=== PATIENT | female | born 1955 | race Caucasian/White ===

== ENCOUNTER 2020-03-26 11:26 | Outpatient (CLI) | payer OTHER, SELFPAY ==
--- NOTE | ~2020-03-26 | XR_ITS ---
EXAMINATION: XR abdomen/kub 1V INDICATION: Kidney stones TECHNIQUE: Supine views of the abdomen were obtained on 2 radiographs. COMPARISON: 08/31/2019 FINDINGS: There are stable nonobstructing stone or stones in the right kidney lower pole. No stones a re identified in the left kidney, along the expected courses of the ureters, or within the urinary bl adder. The bowel gas pattern is normal. A moderate volume of colonic stool is present. IMPRESSION: 1. Stable right nephrolithiasis. Reviewed, dictated and finalized at location A.
== END 2020-03-26 11:27 | disposition home or self-care (01) ==
PROVIDERS: PCP Family Medicine; Visit Provider Urology
DX: N20.0 Calculus of kidney (principal)
CPT/HCPCS: 74018

== ENCOUNTER 2022-01-19 20:00 | Inpatient (IN) | payer MEDICARE, SELFPAY ==
[2022-01-19] VITALS (25 sets, daily range): BP systolic 75–152; BP diastolic 39–83; PULSE 93–125; RESP 14–36; TEMP 37.7–38.8; O2SAT 92–99
--- NOTE | ~2022-01-19 | CT_ITS ---
EXAMINATION: CT lumbar spine wo con DATE: 01/20/2022 11:14 INDICATION: Low back pain TECHNIQUE: Computed tomography (CT) of the lumbar spine was performed without intravenous contrast. A utomated exposure control and iterative reconstruction technique were employed. The dose-length produ ct was 957.18 mGy-cm. COMPARISON: None FINDINGS: Transitional partially lumbarized S1 segment with 5 more cephalad paired rib-bearing lumbar segments. 1-2 mm anterolisthesis L4 on L5. Vertebral body heights are normal. No fracture. Minimal disc height loss at L4-L5. 2.1 cm cyst at the upper pole of the right kidney. Mild hydronephrosis at the visuali zed right kidney with transition point at the ureteropelvic junction without evident obstructing ston e or mass. Paravertebral soft tissues are unremarkable. The following disc levels are specifically di scussed: T12-L1: The disc does not extend beyond the endplate margin. There is minimal bilateral facet joint o steoarthritis. There is no neural foraminal stenosis. There is no central canal stenosis. L1-L2: The disc does not extend beyond the endplate margin. There is mild right and minimal left face t joint osteoarthritis. There is no neural foraminal stenosis. There is no central canal stenosis. L2-L3: Disc is mildly bulging. There is minimal bilateral facet joint osteoarthritis. There is mild b ilateral neural foraminal stenosis. There is minimal central canal stenosis. L3-L4: Disc is bulging. There is mild bilateral facet joint osteoarthritis. There is mild bilateral n eural foraminal stenosis. There is mild central canal stenosis. L4-L5: Disc is bulging. There is moderate bilateral facet joint osteoarthritis. There is mild bilater al neural foraminal stenosis. There is mild central canal stenosis. L5-S1: Disc is mildly bulging. There is mild left and severe right facet joint osteoarthritis. There is mild to moderate bilateral neural foraminal stenosis. There is mild central canal stenosis. IMPRESSION: 1. Mild lumbar spondylosis. 2. Mild right hydronephrosis without evident obstructing stone or mass at the transition point at the ureteropelvic junction. Reviewed, dictated and finalized at location A. IMPRESSION: 1. Mild lumbar spondylosis. 2. Mild right hydronephrosis without evident obstructing stone or mass at the t ransition point at the ureteropelvic junction.
--- NOTE | ~2022-01-19 | XR_ITS ---
EXAMINATION: XR chest 2V DATE: 01/19/2022 22:27 INDICATION: Fever TECHNIQUE: AP and lateral views of the chest are obtained. COMPARISON: 12/03/2014 FINDINGS: There is mild atelectasis of the lung bases. Patchy opacity is present in the left midlung zone. There is no pleural effusion or pneumothorax. The cardiomediastinal silhouette is normal. There is mild thoracic spondylosis. IMPRESSION: 1. Patchy opacity in the left midlung zone, consistent with atelectasis versus pneumonia. Reviewed, dictated and finalized at location F.
--- NOTE | ~2022-01-19 | XR_ITS ---
EXAMINATION: XR chest 1V portable DATE: 01/20/2022 09:35 INDICATION: Increased shortness of breath TECHNIQUE: frontal view of the chest was obtained. COMPARISON: Chest radiograph dated 01/20/2022 FINDINGS: Right upper extremity peripherally inserted central venous catheter (PICC) tip at the caudal superio r vena cava. Increasing diffuse interstitial pattern throughout both lungs. More patchy airspace opac ities in the left lower lung zone. No pleural effusion or pneumothorax. The cardiomediastinal silhoue tte is normal. IMPRESSION: 1. Worsening diffuse bilateral lung disease most likely pulmonary edema although differential include s pneumonia. Reviewed, dictated and finalized at location A. IMPRESSION: 1. Worsening diffuse bilateral lung disease most likely pulmonary edema althoug h differential includes pneumonia.
--- NOTE | ~2022-01-19 | CT_ITS ---
EXAMINATION: CT abdomen pelvis w con INDICATION: Upper abdominal pain TECHNIQUE: Computed tomographic images of the abdomen and pelvis were obtained after the administrati on of 100 cc of Omnipaque 350 intravenous contrast. The dose-length product (DLP) was 860.50 mGy-cm. Automated exposure control and iterative reconstruction technique were employed. COMPARISON: 08/29/2019 FINDINGS: Minimal dependent atelectasis is present in the lung bases. The heart size is normal. The l iver, pancreas, gallbladder, and adrenal glands are normal. Multiple left upper quadrant splenules ar e noted. There is a 9 mm nonobstructing stone of the right kidney lower pole. Cysts of the kidneys me asure up to 3.2 cm on the left. There is calcified atherosclerosis of the aorta and many of the other arteries. No pathologically enlarged abdominal or pelvic lymph nodes are identified. There is no sara e intraperitoneal gas or evidence of bowel obstruction. There is mild lumbar spondylosis. IMPRESSION: 1. No CT correlate for the patient's symptoms. Reviewed, dictated and finalized at location F.
--- NOTE | ~2022-01-19 | XR_ITS ---
EXAMINATION: XR chest 1V portable DATE: 01/21/2022 08:13 INDICATION: Shortness of breath. Pulmonary edema. TECHNIQUE: A single frontal view of the chest was obtained. COMPARISON: Chest single view 01/20/2022, chest CT 01/19/2022 FINDINGS: There is mild atelectasis in the mid and lower lung zones. No pleural effusion or pneumotho rax. The heart size is normal. A right internal jugular central venous catheter is seen with tip at t he superior cavoatrial junction. IMPRESSION: 1. Mild atelectasis in the mid and lower lung zones. Reviewed, dictated and finalized at location B.
--- NOTE | ~2022-01-19 | XR_ITS ---
EXAMINATION: XR chest port-a-cath/central EXAM DATE: 01/20/2022 01:09 INDICATION: Central line placement TECHNIQUE: Portable AP frontal chest x-ray was obtained. Comparison is made to prior examination from 01/19/2022, 12/03/2014. FINDINGS: There is a new right-sided IJ venous line, tip at the cavoatrial junction. Scattered regions of linear subsegmental scarring or atelectasis. No confluent consolidation. There a re no sizable pleural effusions. There is no pneumothorax suspected. The cardiomediastinal silhou ette is prominent but magnified on this AP technique. The bones and soft tissues are unremarkable. There is no significant interval change compared to prior exam. IMPRESSION: 1. Right IJ line in position, no postprocedure pneumothorax. 2. Scattered regions of subsegmental atelectasis or scarring. Reviewed, dictated and finalized at location A.
--- NOTE | ~2022-01-19 | US_ITS ---
EXAMINATION: US abdomen limited DATE: 01/20/2022 08:55 INDICATION: Septic shock. TECHNIQUE: Multiple grayscale and Doppler ultrasound images of the abdomen were obtained. COMPARISON: CT abdomen and pelvis 01/19/2022 FINDINGS: The visualized portions of the head and body of the pancreas are normal. The liver is alok l without focal lesion. There is normal flow in main portal vein. The gallbladder is normal in size a nd contains sludge. No gallstones. Gallbladder wall thickening is noted. There was no sonographic Mur phy sign. The common duct is normal and measures 6 mm. IMPRESSION: 1. Gallbladder sludge. Gallbladder wall thickening may be seen with interstitial edema, chronic iris cystitis, or chronic liver disease. Reviewed, dictated and finalized at location B. IMPRESSION: 1. Gallbladder sludge. Gallbladder wall thickening may be seen with interstitia l edema, chronic cholecystitis, or chronic liver disease.
--- NOTE | ~2022-01-19 | CT_ITS ---
EXAMINATION: CTA chest PE protocol EXAM DATE: 01/19/2022 23:59 INDICATION: left lung opacity vs PE, sepsis . TECHNIQUE: Spiral CTA of the chest (pulmonary arteries) was performed with 100 cc Omnipaque 350 intr avenous contrast injection. Images were acquired during the pulmonary arterial phase. Coronal maxi mum intensity projection 3D-reconstructions were created by the technologist on dedicated workstation . Axial, coronal and sagittal reformatted images were reviewed. The dose-length product (DLP) for t his examination was 409.58 mGy-cm. The exposure was tailored according to patient size (auto mA exp osure control), and iterative reconstruction (ASIR) was used as additional dose reduction technique. There is no prior study for comparison. FINDINGS: There are no pulmonary emboli in the 1st through 3rd order (central and interlobar) pulmon mateo arteries. Some loss of attenuation in the basilar segmental pulmonary from respiratory motion, t hese regions not confidently evaluated. No Intraluminal filling defects identified. No thoracic aor tic dissection. Scattered regions of linear subsegmental atelectasis. There are no pleural or peric ardial effusions. Tracheobronchial tree is patent. There is no mediastinal, hilar or axillary lym phadenopathy. There is no pneumothorax. Borderline heart size. There is mild coronary arterial c alcification, arterial sclerosis. Left upper quadrant splenosis. Hepatic steatosis. There is thorac ic spondylosis without osteoblastic or osteolytic lesions identified. IMPRESSION: 1. Limited basilar segmental evaluation, but no pulmonary emboli are suspected. 2. Scattered subsegmental atelectasis. 3. Hepatic steatosis. Reviewed, dictated and finalized at location A. IMPRESSION: 1. Limited basilar segmental evaluation, but no pulmonary emboli are suspected . 2. Scattered subsegmental atelectasis. 3. Hepatic steatosis.
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
--- NOTE | 2022-01-19 20:32 | ECG_ITS ---
Measurements Intervals Plaza Rate: 105 P: 111 SC: 192 QRS: 214 QRSD: 86 T: 117 QT: 315 QTc: 416 Interpretive Statements SINUS TACHYCARDIA BASELINE ARTIFACT NONSPECIFIC ST ABNORMALITY ARM LEADS REVERSED [INVERTED P AND QRS IN I] ABNORMAL ECG NO PREVIOUS ECG AVAILABLE FOR COMPARISON Electronically Signed On 01-20-2022 16:44:19 CDT by Jon De La Paz M.D.
[2022-01-19 20:34] LABS: Basophils Percent Auto 0.4 % (0.2-1.2); Eosinophils Percent Auto 0.1 % (0-4.4); Hematocrit 39.2 % (37.0-47.0); Hemoglobin 12.8 g/dL (12.0-15.0); Immature Granulocyte Absolute 0.05 K/mm3 (0.00-0.031); Immature Granulocyte Percent A 0.4 % (0-0.5); Lymphocytes Absolute Auto 1.43 K/mm3 (0.9-3.2); Lymphocytes Percent Auto 12.8 % (18.3-44.2); Mean Corpuscular HGB Conc 32.7 g/dl (32-36); Mean Corpuscular Hemoglobin 27.8 pg (26-34); Mean Corpuscular Volume 85.2 fl (80-100); Mean Platelet Volume 11.1 fl (7.4-10.4); Monocytes Absolute Auto 0.1 K/mm3 (0.1-0.6); Monocytes Percent Auto 0.4 % (2.6-8.5); Neutrophils Absolute Auto 9.6 K/mm3 (1.3-6.7); Neutrophils Percent Auto 85.9 % (45.5-73.1); Platelet Count Result 204 k/mm3 (150-375); White Blood Count 11.2 K/mm3 (4.5-10.0)
[2022-01-19 20:50] LABS: Alanine Aminotransferase 27 U/L (4-35); Albumin Level 4.4 g/dL (3.5-5.1); Alkaline Phosphatase 64 U/L (38-126); Anion Gap 9 mmol/L (8-16); Aspartate Amino Transferase 43 U/L (14-36); Bilirubin,Total 0.9 mg/dL (0.2-1.3); Blood Urea Nitrogen 14 mg/dL (7-17); Calcium 8.9 mg/dL (8.4-10.2); Carbon Dioxide 26 mmol/L (22-30); Chloride 101 mmol/L (98-107); Estimated CRCL calculation 60 ml/min; Estimated Glomerular Filt Rate > 60; Glucose 108 mg/dL (65-110); Lipase 54 U/L (23-300); Potassium 2.6 mmol/L (3.4-5.0); Sodium 136 mmol/L (137-145)
[2022-01-19 21:01] LABS: CRP < 0.5 mg/dL (<1.0)
[2022-01-19 21:20] LABS: Troponin I 0.109 ng/mL (0.000-0.034)
[2022-01-19] MEDS: SODIUM CHLORIDE 0.9% IV 2,700 ML/1,000 ML BAG 999 ML IV CONT ×3 (21:29→21:36)
[2022-01-19] MEDS: ONDANSETRON INJ 4 MG/2 ML VIAL IV PUSH (21:35)
[2022-01-19] MEDS: MORPHINE SULFATE (*CRX) 4 MG/ML INJ IV PUSH (21:35)
[2022-01-19] MEDS: POTASSIUM CHLORIDE INJ 40 MEQ in SODIUM CHLORIDE 0.9% IV 500 ML 130 MEQ IVPB (21:35)
[2022-01-19 22:08] LABS: INR 1.1; Lactic Acid Reflex 3.2 mmol/L (0.7-2.1); Prothrombin Time 14.1 Seconds (11.1-14.7)
[2022-01-19 22:09] LABS: Partial Thromboplastin Time 23.8 SECONDS (22.3-36.8)
[2022-01-19 23:02] LABS: Appearance Urine Clear (Clear); Bilirubin Urine Negative (Negative); Blood Urine Trace-lysed (Negative); Color Urine Yellow (Yellow); Glucose Urine UA Negative (Negative); Ketones Urine Negative (Negative); Leukocyte Esterase Ur Negative LEU/UL (Negative); Nitrate Urine Negative (Negative); Protein Urine Negative (Negative); Specific Grav Ur <= 1.005 (1.001-1.035); Urobilinogen Urine 0.2 mg/dL (<2.0)
[2022-01-19 23:04] LABS: Bacteria Urine Trace /hpf; RBC Urine 0-2 /hpf (0-2); Squamous Epithelial Cell Urine Rare /hpf (Few); WBC Urine 0-3 /hpf
[2022-01-19 23:05] LABS: Add Urine Microscopic? YES
[2022-01-19] MEDS: SODIUM CHLORIDE 0.9% IV 1,000 ML 999 ML IV CONT (23:20)
[2022-01-19 23:29] LABS: NT Pro B Type Natriuretic Pept 374 pg/mL (5-100)
[2022-01-19 23:40] LABS: Influenza A QL RT-PCR Negative (Negative); Influenza B QL RT-PCR Negative (Negative); SARS-CoV-2 RNA PCR Negative
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
[2022-01-20] VITALS (38 sets, daily range): BP systolic 82–133; BP diastolic 41–80; PULSE 68–114; RESP 14–26; TEMP 36.7–38.8; O2SAT 88–99; BMI 35.9
--- NOTE | 2022-01-20 | ECHO_ITS ---
Patient Info Name: Pamela Sam Age: 66 years : 1955 Gender: Female Ht: 64 in Wt: 200 lbs BSA: 2.06 m2 HR: 99 bpm BP: 155 / 69 mmHg Heart Rhythm: Sinus Rhythm Exam Date: 01/20/2022 7:54 AM Exam Location: [facility] Patient Status: Inpatient Admit Date: 01/20/2022 Staff Ordering Physician: Ayaka Espinoza MD Toll Transmission Worker: Benedicto Maynard RDCS, RT Attending Provider: Ivonne Newton DO Referring Physician: Alexis TURNER; Exam Type: CA echo doppler color flow Study Info Indications I50.9 - Heart failure, unspecified Complete two-dimensional, color flow and Doppler transthoracic echocardiogram is performed. Strain analysis performed. Summary 1. Complete two-dimensional, color flow and Doppler transthoracic echocardiogram is performed. 2. Left ventricular chamber dimension is normal. 3. Left ventricular systolic function is normal, estimated at 55-60%. 4. There is mildly increased left ventricular wall thickness. 5. The left ventricular diastolic function is indeterminate with information provided. 6. Global longitudinal strain is mildly elevated at -17 %. 7. There is trace tricuspid valve regurgitation. 8. Mild pulmonary hypertension, estimated pulmonary arterial systolic pressure is 36 mmHg. Left Ventricle Left ventricular chamber dimension is normal. Left ventricular systolic function is normal, estimated at 55-60%. There is mildly increased left ventricular wall thickness. The left ventricular diastolic function is indeterminate with information provided. Global longitudinal strain is mildly elevated at -17 %. Right Ventricle Right ventricular chamber dimension is normal. Right ventricular systolic function is normal. Left Atria Left atrial chamber dimension is normal. Right Atria Right atrial chamber dimension is normal. Aortic Valve The aortic valve is trileaflet. There is no aortic valve stenosis. There is no aortic valve regurgitation. Pulmonic Valve The pulmonic valve is not well visualized. There is trace pulmonic regurgitation. Mitral Valve The mitral valve has normal leaflets. There is trace mitral valve regurgitation. Tricuspid Valve The tricuspid valve leaflets are normal. There is trace tricuspid valve regurgitation. Mild pulmonary hypertension, estimated pulmonary arterial systolic pressure is 36 mmHg. Pericardium/Pleural The pericardium appears normal. There is small pericardial effusion. Inferior Vena Cava Dilated inferior vena cava with <50% collapse upon inspiration consistent with elevated right atrial pressure, 10 mmHg. Aorta The aortic root size at the sinus of Valsalva is normal. There is mild aortic atherosclerosis. Left Ventricular Outflow Tract Name Value Normal LVOT 2D LVOT Diameter 1.9 cm LVOT Doppler LVOT Peak Gradient 5 mmHg LVOT Mean Gradient 3 mmHg LVOT VTI 17 cm LVOT VTI/AV VTI Ratio 0.6 LVOT Stroke Volume 47 ml LVOT CO
[2022-01-20 00:34] LABS: Magnesium 1.2 mg/dL (1.6-2.3)
[2022-01-20 00:55] LABS: Reflex Lactic Acid Yes or No Add Lactic
[2022-01-20 00:57] LABS: Troponin I 0.381 ng/mL (0.000-0.034)
[2022-01-20] MEDS: MORPHINE SULFATE (*CRX) 4 MG/ML INJ IV PUSH (01:08)
[2022-01-20 01:32] LABS: Lactic Acid 2.5 mmol/L (0.7-2.1)
[2022-01-20] MEDS: NOREPINEPHRINE 8 MG/D5W 250 ML 8 MG/250 ML BAG 9.38 MG IV CONT (01:33)
--- NOTE | 2022-01-20 02:37 | ADMGEN ---
This patient, Pamela Sam, was admitted to Intensive Care Unit-1. Patient/family oriented to hospital policies and general routines including ID bracelet, bed and alarms, visiting hours, pain management, procedures, bathroom and other care routines, personal items, smoking policy, room service/diet, and visiting hours. Information on how to activate the Rapid Response Team has been discussed. Patient/Family are encouraged to report perceived risks to care and to ask questions if they do not understand what they are told or what they should do.
[2022-01-20] MEDS: ONDANSETRON INJ 4 MG/2 ML VIAL IV PUSH ×2 (02:44→11:50)
[2022-01-20] MEDS: LACTATED RINGERS 1,000 ML 200 ML IV CONT ×2 (03:10→09:11)
[2022-01-20] MEDS: NOREPINEPHRINE 8 MG/D5W 250 ML 8 MG/250 ML BAG 3.75 MG IV CONT (04:25)
[2022-01-20 05:56] LABS: Troponin I 0.303 ng/mL (0.000-0.034)
[2022-01-20] MEDS: ALBUTEROL SULFATE NEB 2.5 MG/0.5 ML INH 5 MG INHALATION (06:08)
[2022-01-20 06:15] LABS: Estimated CRCL calculation 61 ml/min; Estimated Glomerular Filt Rate > 60
[2022-01-20 06:30] LABS: Hematocrit 33.2 % (37.0-47.0); Hemoglobin 10.8 g/dL (12.0-15.0); Mean Corpuscular HGB Conc 32.5 g/dl (32-36); Mean Corpuscular Hemoglobin 28.3 pg (26-34); Mean Corpuscular Volume 87.1 fl (80-100); Mean Platelet Volume 11.6 fl (7.4-10.4); Platelet Count Result 141 k/mm3 (150-375); Red Blood Count 3.81 M/mm3 (4.2-5.4); Red Cell Distribution Width 14.6 % (11.5-14.5); White Blood Count 20.5 K/mm3 (4.5-10.0)
[2022-01-20] MEDS: MAGNESIUM SULF 4 GM/WATER100ML 4 GM/100 ML BAG IVPB (06:44)
[2022-01-20 06:51] LABS: Lactic Acid Reflex 2.8 mmol/L (0.7-2.1)
[2022-01-20 06:53] LABS: Albumin Level 2.8 g/dL (3.5-5.1); Alkaline Phosphatase 33 U/L (38-126); Anion Gap 7 mmol/L (8-16); Aspartate Amino Transferase 39 U/L (14-36); Bilirubin,Total 0.7 mg/dL (0.2-1.3); Blood Urea Nitrogen 12 mg/dL (7-17); Calcium 7.1 mg/dL (8.4-10.2); Carbon Dioxide 21 mmol/L (22-30); Chloride 107 mmol/L (98-107); Estimated CRCL calculation 61 ml/min; Estimated Glomerular Filt Rate > 60; Glucose 104 mg/dL (65-110); Potassium 2.8 mmol/L (3.4-5.0); Sodium 135 mmol/L (137-145)
[2022-01-20 06:56] LABS: Alanine Aminotransferase 31 U/L (4-35)
[2022-01-20 07:51] LABS: Acanthocytes 1+ (NORMAL); Band Neutrophils Percent 17 % (0-6); Lymphocytes Absolute Manual 0.82 K/mm3 (1.1-4.5); Monocytes Percent Manual 1 % (3-9); Neutrophils Absolute Manual 19.47 K/mm3 (1.7-7.2); Neutrophils Percent Manual 78 % (46-73); Ovalocytes 1+ (NORMAL); Total Cells Counted 100
[2022-01-20] MEDS: ENOXAPARIN 40 MG/0.4 ML SYRINGE SUB-Q (09:03)
[2022-01-20] MEDS: ASPIRIN 81 MG ENTERIC TABLET PO (09:03)
[2022-01-20] MEDS: ESCITALOPRAM OXALATE 10 MG TABLET PO (09:03)
[2022-01-20] MEDS: PANTOPRAZOLE 40 MG TABLET PO (09:03)
[2022-01-20] MEDS: POTASSIUM CHLORIDE 20 MEQ PACKET (FOR LIQUID) 40 MEQ PO (09:16)
[2022-01-20] MEDS: FUROSEMIDE INJ 40 MG/4 ML VIAL IV PUSH (09:33)
--- NOTE | 2022-01-20 10:15 | PM.IMPN ---
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 (2) Elevated troponin: Code(s): R77.8 - Other specified abnormalities of plasma proteins Status: Acute Assessment and Plan: Most likely related to demand ischemia secondary to NSTEMI type 2 follow echo results (3) Hypokalemia: Code(s): E87.6 - Hypokalemia Status: Acute Assessment and Plan: Replace (4) Hypomagnesemia: Code(s): E83.42 - Hypomagnesemia Status: Acute Assessment and Plan: Replace monitor (5) Bandemia: Code(s): D72.825 - Bandemia Status: Acute Assessment and Plan: Secondary to sepsis (6) Essential hypertension: Code(s): I10 - Essential (primary) hypertension Status: Chronic Assessment and Plan: Blood pressure medication on hold due to septic shock (7) Hyperlipidemia: Qualifiers: Hyperlipidemia type: unspecified Qualified Code(s): E78.5 - Hyperlipidemia, unspecified Code(s): E78.5 - Hyperlipidemia, unspecified Status: Acute Assessment and Plan: Continue to monitor (8) Back pain: Code(s): M54.9 - Dorsalgia, unspecified Status: Acute Assessment and Plan: Pending CT scan of the lumbar spine (9) Abdominal pain: Code(s): R10.9 - Unspecified abdominal pain Status: Acute Assessment and Plan: CT scan of the abdomen shows nonobstructive kidney stone most likely related to pneumonia as below There is a 9 mm nonobstructing stone of the right kidney lower pole. Cysts of the kidneys measure up to 3.2 cm on the left. There is calcified atherosclerosis of the aorta and many of the other arteries Subjective Date/time seen: 01/20/22 10:15 Interval history: 66-year-old female with a past medical history of prior splenectomy, hypertension and hyperlipidemia of prior small bowel obstruction who presented to the ER with fever, nausea vomiting and abdominal pain At the ER patient was found to have fever leukocytosis hypotension septic shock elevated lactic acid sepsis protocol was started Levophed was started blood culture came back positive for g positive cocci in chains pending final culture patient currently on broad-spectrum IV antibiotic in ICU Also troponin was elevated pending echo patient complained of back pain CT scan lumbar spine was ordered by ICU Patient feels weak complains of back pain Patient denies fever headache chest pain I am seeing the patient for sepsis Exam Narrative: Alert Chest decreased air entry bilateral Abdomen nontender nondistended CVS S1 + S2 Negative Lower extremity edema Neurological exam nonfocal Upper extremity exam neurovascular intact Objective Data Vital Signs Vital Signs: Vital Signs - 24 hr 01/19/22 20:18 01/19/22 20:27 01/19/22 20:28 Temperature 100.8 F H Pulse Rate 125 H 117 H 115 H Respiratory Rate 20 36 H 31 H Blood Pressure 142/83 H 147/67 H Pulse Oximetry 96 94 94 01/19/22 20:30 01/19/22 20:31 01/19/22 21:28 Temperature Pulse Rate 114 H 115 H 114 H Respiratory Rate 31 H 32 H 30 H Blood Pressure 152/78 H Pulse Oximetry 94 93 01/19/22 21:29 01/19/22 21:36 01/19/22 21:42 Temperature 101.8 F H Pulse Rate 112 H 110 H 104 H Respiratory Rate 22 H 24 H 24 H Blood Pressure 149/71 H 134/57 L 134/57 L Pulse Oximetry 97 99 92 01/19/22 21:45 01/19/22 22:00 01/19/22 22:39 Temperature Pulse Rate 106 H 106 H 103 H Respiratory Rate 26 H 28 H 22 H Blood Pressure 94/47 L 89/47 L Pulse Oximetry 93 92 01/19/22 22:59 01/19/22 23:0
[2022-01-20] MEDS: ACETAMINOPHEN 325 MG TABLET 650 MG PO ×3 (10:31→20:08)
[2022-01-20] MEDS: MAGNESIUM SULF 2 GM/WATER 50ML 2 GM/50 ML BAG IVPB (10:31)
[2022-01-20 11:08] LABS: Procalcitonin 50.4 ng/mL
[2022-01-20 11:12] LABS: Magnesium 2.5 mg/dL (1.6-2.3); Potassium 3.3 mmol/L (3.4-5.0)
--- NOTE | 2022-01-20 11:20 | PC.NURSE ---
Assume care of patient after report from Fiordaliza Damon RN. Patient recently returned from CT, no sign or symptom of distress.
--- NOTE | 2022-01-20 12:00 | PC.NURSE ---
Updated patient's son and [id number] on patient condition.
--- NOTE | 2022-01-20 12:03 | WPDCNINT ---
Assessment and Plan Assessment and plan (1) Septic shock: Code(s): A41.9 - Sepsis, unspecified organism; R65.21 - Severe sepsis with septic shock Status: Acute Assessment and Plan: Septic shock likely related to hypovolemia secondary to nausea, vomiting, diarrhea related to possible gastroenteritis after eating pizza on the day of admission -multiple episodes of emesis and diarrhea per patient -Patient did receive almost 9 L of IV fluid since admission -was briefly on Levophed, which is currently off - leukocytosis with bandemia -continue cefepime and vancomycin -patient has a history of splenectomy -blood cultures are pending -UA is negative 01/19: CT abdomen and pelvis: Liver, pancreas, gallbladder and adrenal glands are normal, multiple left upper quadrant splenules are noted. There is a 9 mm nonobstructing stone of the right kidney lower pole. Cysts of the kidneys measure up to 3.2 cm on the left. No pathologically enlarged abdominal or pelvic lymph nodes are identified. There is no free intraperitoneal gas or evidence of bowel obstruction. There is mild lumbar spondylosis. 01/19: Chest CTA, no pulmonary embolism, scattered subsegmental atelectasis, hepatic steatosis. 01/20: Abdominal ultrasound showed gallbladder sludge, gallbladder wall thickening may be seen with interstitial edema, chronic cholecystitis or chronic liver disease. 01/20: CT scan of the lumbar spine: Mild lumbar spondylosis. Mild right hydronephrosis without evident obstructing stone or mass at the transition point at the ureteropelvic junction. (2) Elevated troponin: Code(s): R77.8 - Other specified abnormalities of plasma proteins Status: Acute Assessment and Plan: Elevated troponin is likely related to ischemic demand -did not show any ST-T change -discuss with Cardiology, also thinks it is due to ischemic demand -Echo 01/20/22 1. Complete two-dimensional, color flow and Doppler transthoracic echocardiogram is performed. 2. Left ventricular chamber dimension is normal. 3. Left ventricular systolic function is normal, estimated at 55-60%. 4. There is mildly increased left ventricular wall thickness. 5. The left ventricular diastolic function is indeterminate with information provided. 6. Global longitudinal strain is mildly elevated at -17 %. 7. There is trace tricuspid valve regurgitation. 8. Mild pulmonary hypertension, estimated pulmonary arterial systolic pressure is 36 mmHg. (3) Essential hypertension: Code(s): I10 - Essential (primary) hypertension Status: Chronic Assessment and Plan: hold antihypertensive meds as pt was on Levophed (4) Hypokalemia: Code(s): E87.6 - Hypokalemia Status: Acute Assessment and Plan: likely due to diarrhea and vomiting -will replace potassium and magnesium Additional Plan D/w pt and updated her with her condition and plan of care Code status: Full Code Critical care time spent: 43 minutes This dictation may have been done utilizing a voice recognition system. Attempts have been made to correct errors. However, there may be uncorrected grammatical, spelling, and recognition errors present. Due to a high probability of clinically significant, life threatening deterioration, the patient required my highest level of preparedness to intervene emergently and I personally spent this critical care time directly and personally managing the patient. This critical care time included obtaining a history; examining the patient; pulse oximetry; ordering and review of studies; arranging urgent treatment with development of a management plan; evaluation of patient's response to treatment; frequent reassessment; and discussions with other providers. It was exclusive of separately billable procedures and treating other patients and teaching time. Please see Assessment and Plan section and the rest of the note for further information on patient assessm
[2022-01-20] MEDS: KCL 40 MEQ/WATER 100 ML 100 ML 25 ML IVPB (18:30)
[2022-01-20] MEDS: LIDOCAINE 5% PATCH 1 PATCH TRANSDERM (20:04)
[2022-01-20] MEDS: SIMVASTATIN 20 MG TABLET 40 MG PO (20:09)
[2022-01-21] VITALS (18 sets, daily range): BP systolic 94–132; BP diastolic 48–85; PULSE 80–98; RESP 15–29; TEMP 37.1–37.4; O2SAT 94–100
[2022-01-21] MEDS: ACETAMINOPHEN 325 MG TABLET 650 MG PO ×4 (00:41→15:09)
[2022-01-21] MEDS: NOREPINEPHRINE 8 MG/D5W 250 ML 8 MG/250 ML BAG 22.5 MG IV CONT (01:00)
[2022-01-21 01:01] LABS: Glucose Point of Care 94 mg/dl (65-105)
[2022-01-21 04:58] LABS: Glucose Point of Care 105 mg/dl (65-105)
[2022-01-21 05:15] LABS: Hematocrit 35.7 % (37.0-47.0); Mean Corpuscular HGB Conc 33.6 g/dl (32-36); Mean Corpuscular Hemoglobin 28.7 pg (26-34); Mean Corpuscular Volume 85.4 fl (80-100); Mean Platelet Volume 11.8 fl (7.4-10.4); Platelet Count Result 141 k/mm3 (150-375); Red Blood Count 4.18 M/mm3 (4.2-5.4); Red Cell Distribution Width 15.1 % (11.5-14.5); White Blood Count 29.5 K/mm3 (4.5-10.0)
[2022-01-21 05:27] LABS: Lactic Acid Reflex 1.9 mmol/L (0.7-2.1)
[2022-01-21 05:29] LABS: Alanine Aminotransferase 29 U/L (4-35); Albumin Level 3.3 g/dL (3.5-5.1); Alkaline Phosphatase 61 U/L (38-126); Anion Gap 3 mmol/L (8-16); Aspartate Amino Transferase 47 U/L (14-36); Bilirubin,Total 0.9 mg/dL (0.2-1.3); Blood Urea Nitrogen 12 mg/dL (7-17); Calcium 7.6 mg/dL (8.4-10.2); Carbon Dioxide 27 mmol/L (22-30); Chloride 103 mmol/L (98-107); Estimated CRCL calculation 68 ml/min; Estimated Glomerular Filt Rate > 60; Glucose 106 mg/dL (65-110); Magnesium 2.5 mg/dL (1.6-2.3); Potassium 3.3 mmol/L (3.4-5.0); Sodium 133 mmol/L (137-145)
[2022-01-21] MEDS: ONDANSETRON INJ 4 MG/2 ML VIAL IV PUSH ×3 (05:30→20:59)
[2022-01-21 05:57] LABS: Acanthocytes 1+ (NORMAL); Band Neutrophils Percent 25 % (0-6); Lymphocytes Absolute Manual 1.18 K/mm3 (1.1-4.5); Lymphocytes Percent Manual 4 % (18-44); Monocytes Absolute Manual 0.88 K/mm3 (0.1-0.90); Monocytes Percent Manual 3 % (3-9); Neutrophils Absolute Manual 27.43 K/mm3 (1.7-7.2); Neutrophils Percent Manual 68 % (46-73); Platelet Estimate Adequate (Adequate); Total Cells Counted 100
[2022-01-21] MEDS: POTASSIUM CHLORIDE 20 MEQ TABLET 40 MEQ PO (08:10)
[2022-01-21] MEDS: LACTATED RINGERS 1,000 ML 75 ML IV CONT (08:11)
[2022-01-21] MEDS: KCL 40 MEQ/WATER 100 ML 100 ML 25 ML IVPB (08:12)
[2022-01-21] MEDS: ESCITALOPRAM OXALATE 10 MG TABLET PO (08:14)
[2022-01-21] MEDS: ASPIRIN 81 MG ENTERIC TABLET PO (08:14)
[2022-01-21] MEDS: PANTOPRAZOLE 40 MG TABLET PO (08:14)
[2022-01-21] MEDS: ENOXAPARIN 40 MG/0.4 ML SYRINGE SUB-Q (08:14)
--- NOTE | 2022-01-21 12:12 | P.PNINT_ITS ---
Progress Note: A&P Assessment and Plan (1) Septic shock: Code(s): A41.9 - Sepsis, unspecified organism; R65.21 - Severe sepsis with septic shock Status: Acute Assessment and Plan: Septic shock likely related to hypovolemia secondary to nausea, vomiting, diarrhea related to possible gastroenteritis, 01/19/2022: Blood cultures growing strep pneumonia 2/2 bottles -patient received significant amount of IV fluids, was volume overloaded on 01/20, was given Lasix. Respiratory status improved, -patient is on Levophed, maintain MAP > 65 mmHg -leukocytosis and bandemia persists -continue cefepime and vancomycin (01/20/2022) -patient has a history of splenectomy -UA is negative 01/19: CT abdomen and pelvis: Liver, pancreas, gallbladder and adrenal glands are normal, multiple left upper quadrant splenules are noted. There is a 9 mm nonobstructing stone of the right kidney lower pole. Cysts of the kidneys measure up to 3.2 cm on the left. No pathologically enlarged abdominal or pelvic lymph nodes are identified. There is no free intraperitoneal gas or evidence of bowel obstruction. There is mild lumbar spondylosis. 01/19: Chest CTA, no pulmonary embolism, scattered subsegmental atelectasis, hepatic steatosis. 01/20: Abdominal ultrasound showed gallbladder sludge, gallbladder wall thickening may be seen with interstitial edema, chronic cholecystitis or chronic liver disease. 01/20: CT scan of the lumbar spine: Mild lumbar spondylosis. Mild right hydronephrosis without evident obstructing stone or mass at the transition point at the ureteropelvic junction. (2) Elevated troponin: Code(s): R77.8 - Other specified abnormalities of plasma proteins Status: Acute Assessment and Plan: Elevated troponin is likely related to ischemic demand -did not show any ST-T change -discuss with Cardiology, also thinks it is due to ischemic demand -Echo 01/20/22 1. Complete two-dimensional, color flow and Doppler transthoracic echocardiogram is performed. 2. Left ventricular chamber dimension is normal. 3. Left ventricular systolic function is normal, estimated at 55-60%. 4. There is mildly increased left ventricular wall thickness. 5. The left ventricular diastolic function is indeterminate with information provided. 6. Global longitudinal strain is mildly elevated at -17 %. 7. There is trace tricuspid valve regurgitation. 8. Mild pulmonary hypertension, estimated pulmonary arterial systolic pressure is 36 mmHg. (3) Essential hypertension: Code(s): I10 - Essential (primary) hypertension Status: Chronic Assessment and Plan: hold antihypertensive meds as pt was on Levophed (4) Hypokalemia: Code(s): E87.6 - Hypokalemia Status: Acute Assessment and Plan: likely due to diarrhea and vomiting -will replace potassium Additional Plan D/w pt and updated her with her condition and plan of care Code status: Full Code Critical care time spent: 33 minutes This dictation may have been done utilizing a voice recognition system. Attempts have been made to correct errors. However, there may be uncorrected grammatical, spelling, and recognition errors present. Due to a high probability of clinically significant, life threatening deterioration, the patient required my highest level of preparedness to intervene emergently and I personally spent this critical care time directly and personally managing the patient. This critical care time included obtaining a history; examining the patient; pulse oximetry; ordering and review of studies; arranging urgent treatment
[2022-01-21] MEDS: NOREPINEPHRINE 8 MG/D5W 250 ML 8 MG/250 ML BAG 18.75 MG IV CONT (12:13)
--- NOTE | 2022-01-21 18:43 | PM.IMPN ---
Progress Note: A&P Assessment and Plan (1) Septic shock: Code(s): A41.9 - Sepsis, unspecified organism; R65.21 - Severe sepsis with septic shock Status: Acute Assessment and Plan: Septic shock likely related to hypovolemia secondary to nausea, vomiting, diarrhea related to possible gastroenteritis, 01/19/2022: Blood cultures growing strep pneumonia 2/2 bottles -patient received significant amount of IV fluids, was volume overloaded on 01/20, was given Lasix. Respiratory status improved, -patient is on Levophed, maintain MAP > 65 mmHg -leukocytosis and bandemia persists -continue cefepime and vancomycin (01/20/2022) -patient has a history of splenectomy -UA is negative 01/19: CT abdomen and pelvis: Liver, pancreas, gallbladder and adrenal glands are normal, multiple left upper quadrant splenules are noted. There is a 9 mm nonobstructing stone of the right kidney lower pole. Cysts of the kidneys measure up to 3.2 cm on the left. No pathologically enlarged abdominal or pelvic lymph nodes are identified. There is no free intraperitoneal gas or evidence of bowel obstruction. There is mild lumbar spondylosis. 01/19: Chest CTA, no pulmonary embolism, scattered subsegmental atelectasis, hepatic steatosis. 01/20: Abdominal ultrasound showed gallbladder sludge, gallbladder wall thickening may be seen with interstitial edema, chronic cholecystitis or chronic liver disease. 01/20: CT scan of the lumbar spine: Mild lumbar spondylosis. Mild right hydronephrosis without evident obstructing stone or mass at the transition point at the ureteropelvic junction. 01/21/2022 interval history: patient is 66-year-old female presented emergency department with complaint abdominal pain nausea or vomiting fever patient was in septic shock patient was vigorously hydrated however remain hypotensive central line was placed and patient was transferred to ICU and on pressors, patient is being treated with Cefepime and vancomycin, both blood culture bottles are growing Streptococcus pneumonia sensitive to vancomycin, currently patient is treated with Zosyn and vancomycin, patient states feeling better compared to when she arrived will continue to monitor and further recommendation to follow. (2) Elevated troponin: Code(s): R77.8 - Other specified abnormalities of plasma proteins Status: Acute Assessment and Plan: Elevated troponin is likely related to ischemic demand -did not show any ST-T change -discuss with Cardiology, also thinks it is due to ischemic demand -Echo 01/20/22 1. Complete two-dimensional, color flow and Doppler transthoracic echocardiogram is performed. 2. Left ventricular chamber dimension is normal. 3. Left ventricular systolic function is normal, estimated at 55-60%. 4. There is mildly increased left ventricular wall thickness. 5. The left ventricular diastolic function is indeterminate with information provided. 6. Global longitudinal strain is mildly elevated at -17 %. 7. There is trace tricuspid valve regurgitation. 8. Mild pulmonary hypertension, estimated pulmonary arterial systolic pressure is 36 mmHg. (3) Essential hypertension: Code(s): I10 - Essential (primary) hypertension Status: Chronic Assessment and Plan: hold antihypertensive meds as pt was on Levophed (4) Hypokalemia: Code(s): E87.6 - Hypokalemia Status: Acute Assessment and Plan: likely due to diarrhea and vomiting -will replace potassium Subjective Date/time seen: 01/21/22 18:43 HPI-Narrative: 66-year-old female with a past medical history of prior splenectomy, hypertension and hyperlipidemia of prior small bowel obstruction who presented to the ER with fever, nausea vomiting and abdominal pain. The patient reports that she was in her usual state health until around 4:00 p.m.. The patient reported that earlier in the day she had been to [place] to eat. A couple of hours lat
[2022-01-21] MEDS: SIMVASTATIN 20 MG TABLET 40 MG PO (21:34)
[2022-01-21] MEDS: CENTRAL LINE FLUSH 10 ML IV PUSH (21:34)
[2022-01-21] MEDS: LIDOCAINE 5% PATCH 1 PATCH TRANSDERM (21:34)
[2022-01-22] VITALS (12 sets, daily range): BP systolic 86–133; BP diastolic 58–76; PULSE 72–90; RESP 14–24; TEMP 36.4–37.3; O2SAT 94–100
[2022-01-22] MEDS: ACETAMINOPHEN 325 MG TABLET 650 MG PO ×2 (00:57→14:47)
[2022-01-22] MEDS: CENTRAL LINE FLUSH 10 ML IV PUSH ×3 (05:28→21:07)
[2022-01-22 07:08] LABS: Basophils Absolute Auto 0.1 K/mm3 (0.0-0.1); Basophils Percent Auto 0.4 % (0.2-1.2); Eosinophils Absolute Auto 0.1 K/mm3 (0-0.3); Eosinophils Percent Auto 0.2 % (0-4.4); Hematocrit 31.7 % (37.0-47.0); Hemoglobin 10.6 g/dL (12.0-15.0); Immature Granulocyte Absolute 0.23 K/mm3 (0.00-0.031); Immature Granulocyte Percent A 1.1 % (0-0.5); Immature Platelet Fraction Pct 9.7 % (0.9-11.2); Lymphocytes Absolute Auto 2.89 K/mm3 (0.9-3.2); Lymphocytes Percent Auto 13.7 % (18.3-44.2); Mean Corpuscular HGB Conc 33.4 g/dl (32-36); Mean Corpuscular Hemoglobin 28.4 pg (26-34); Mean Platelet Volume 11.6 fl (7.4-10.4); Monocytes Absolute Auto 0.7 K/mm3 (0.1-0.6); Monocytes Percent Auto 3.5 % (2.6-8.5); Neutrophils Absolute Auto 17.1 K/mm3 (1.3-6.7); Neutrophils Percent Auto 81.1 % (45.5-73.1); Platelet Count Result 108 k/mm3 (150-375); Red Blood Count 3.73 M/mm3 (4.2-5.4); Red Cell Distribution Width 15.4 % (11.5-14.5); White Blood Count 21.1 K/mm3 (4.5-10.0)
[2022-01-22 07:19] LABS: Anion Gap 4 mmol/L (8-16); Blood Urea Nitrogen 8 mg/dL (7-17); Calcium 7.9 mg/dL (8.4-10.2); Carbon Dioxide 25 mmol/L (22-30); Chloride 105 mmol/L (98-107); Estimated CRCL calculation 78 ml/min; Estimated Glomerular Filt Rate > 60; Glucose 94 mg/dL (65-110); Potassium 3.7 mmol/L (3.4-5.0); Sodium 134 mmol/L (137-145)
[2022-01-22 07:29] LABS: Vancomycin Trough 7.2 ug/mL (10.0-20.0)
[2022-01-22 07:39] LABS: Crenated RBC 1+ (NORMAL); Large Platelets Present
[2022-01-22 07:40] LABS: Acanthocytes 1+ (NORMAL); Anisocytosis 2+ (NORMAL); Hypochromasia 1+ (NORMAL)
[2022-01-22] MEDS: ESCITALOPRAM OXALATE 10 MG TABLET PO (08:21)
[2022-01-22] MEDS: ASPIRIN 81 MG ENTERIC TABLET PO (08:21)
[2022-01-22] MEDS: PANTOPRAZOLE 40 MG TABLET PO (08:21)
[2022-01-22] MEDS: ENOXAPARIN 40 MG/0.4 ML SYRINGE SUB-Q (08:22)
--- NOTE | 2022-01-22 09:29 | WPDINTPN ---
Progress Note: A&P Assessment and Plan (1) Septic shock: Code(s): A41.9 - Sepsis, unspecified organism; R65.21 - Severe sepsis with septic shock Status: Acute Assessment and Plan: Septic shock likely related to hypovolemia secondary to nausea, vomiting, diarrhea related to possible gastroenteritis, 01/19/2022: Blood cultures growing strep pneumonia 2/2 bottles -patient received significant amount of IV fluids, was volume overloaded on 01/20, was given Lasix. Respiratory status improved, -patient is on Levophed, maintain MAP > 65 mmHg -leukocytosis and bandemia persists -continue cefepime and vancomycin (01/20/2022) -patient has a history of splenectomy -UA is negative 01/19: CT abdomen and pelvis: Liver, pancreas, gallbladder and adrenal glands are normal, multiple left upper quadrant splenules are noted. There is a 9 mm nonobstructing stone of the right kidney lower pole. Cysts of the kidneys measure up to 3.2 cm on the left. No pathologically enlarged abdominal or pelvic lymph nodes are identified. There is no free intraperitoneal gas or evidence of bowel obstruction. There is mild lumbar spondylosis. 01/19: Chest CTA, no pulmonary embolism, scattered subsegmental atelectasis, hepatic steatosis. 01/20: Abdominal ultrasound showed gallbladder sludge, gallbladder wall thickening may be seen with interstitial edema, chronic cholecystitis or chronic liver disease. 01/20: CT scan of the lumbar spine: Mild lumbar spondylosis. Mild right hydronephrosis without evident obstructing stone or mass at the transition point at the ureteropelvic junction. (2) Elevated troponin: Code(s): R77.8 - Other specified abnormalities of plasma proteins Status: Acute Assessment and Plan: Elevated troponin is likely related to ischemic demand -did not show any ST-T change -discuss with Cardiology, also thinks it is due to ischemic demand -Echo 01/20/22 1. Complete two-dimensional, color flow and Doppler transthoracic echocardiogram is performed. 2. Left ventricular chamber dimension is normal. 3. Left ventricular systolic function is normal, estimated at 55-60%. 4. There is mildly increased left ventricular wall thickness. 5. The left ventricular diastolic function is indeterminate with information provided. 6. Global longitudinal strain is mildly elevated at -17 %. 7. There is trace tricuspid valve regurgitation. 8. Mild pulmonary hypertension, estimated pulmonary arterial systolic pressure is 36 mmHg. (3) Essential hypertension: Code(s): I10 - Essential (primary) hypertension Status: Chronic Assessment and Plan: hold antihypertensive meds as pt was on Levophed (4) Hypokalemia: Code(s): E87.6 - Hypokalemia Status: Acute Assessment and Plan: likely due to diarrhea and vomiting -potassium normalized, continue to monitor Additional Plan D/w pt and updated her with her condition and plan of care Code status: Full Code Critical care time spent: 32 minutes This dictation may have been done utilizing a voice recognition system. Attempts have been made to correct errors. However, there may be uncorrected grammatical, spelling, and recognition errors present. Due to a high probability of clinically significant, life threatening deterioration, the patient required my highest level of preparedness to intervene emergently and I personally spent this critical care time directly and personally managing the patient. This critical care time included obtaining a history; examining the patient; pulse oximetry; ordering and review of studies; arranging urgent treatment with development of a management plan; evaluation of patient's response to treatment; frequent reassessment; and discussions with other providers. It was exclusive of separately billable procedures and treating other patients and teaching time. Please see Assessment and Plan section and the rest of the note for furthe
--- NOTE | 2022-01-22 14:07 | PM.IMPN ---
Progress Note: A&P Assessment and Plan (1) Septic shock: Code(s): A41.9 - Sepsis, unspecified organism; R65.21 - Severe sepsis with septic shock Status: Acute Assessment and Plan: Septic shock likely related to hypovolemia secondary to nausea, vomiting, diarrhea related to possible gastroenteritis, 01/19/2022: Blood cultures growing strep pneumonia 2/2 bottles -patient received significant amount of IV fluids, was volume overloaded on 01/20, was given Lasix. Respiratory status improved, -patient is on Levophed, maintain MAP > 65 mmHg -leukocytosis and bandemia persists -continue cefepime and vancomycin (01/20/2022) -patient has a history of splenectomy -UA is negative 01/19: CT abdomen and pelvis: Liver, pancreas, gallbladder and adrenal glands are normal, multiple left upper quadrant splenules are noted. There is a 9 mm nonobstructing stone of the right kidney lower pole. Cysts of the kidneys measure up to 3.2 cm on the left. No pathologically enlarged abdominal or pelvic lymph nodes are identified. There is no free intraperitoneal gas or evidence of bowel obstruction. There is mild lumbar spondylosis. 01/19: Chest CTA, no pulmonary embolism, scattered subsegmental atelectasis, hepatic steatosis. 01/20: Abdominal ultrasound showed gallbladder sludge, gallbladder wall thickening may be seen with interstitial edema, chronic cholecystitis or chronic liver disease. 01/20: CT scan of the lumbar spine: Mild lumbar spondylosis. Mild right hydronephrosis without evident obstructing stone or mass at the transition point at the ureteropelvic junction. 01/21/2022 interval history: patient is 66-year-old female presented emergency department with complaint abdominal pain nausea or vomiting fever patient was in septic shock patient was vigorously hydrated however remain hypotensive central line was placed and patient was transferred to ICU and on pressors, patient is being treated with Cefepime and vancomycin, both blood culture bottles are growing Streptococcus pneumonia sensitive to vancomycin, currently patient is treated with Zosyn and vancomycin, patient states feeling better compared to when she arrived will continue to monitor and further recommendation to follow. 01/22/2022 interval history: patient is 66-year-old female with a past medical history splenectomy, presented emergency department with complaint abdominal pain nausea or vomiting fever patient was in septic shock patient was vigorously hydrated however remain hypotensive central line was placed and patient was transferred to ICU and on pressors, patient is being treated with Cefepime and vancomycin, both blood culture bottles are growing Streptococcus pneumonia sensitive to vancomycin, currently patient is treated with Zosyn and vancomycin, today patient is off pressor her blood pressure is stable, discussed with leasing property manager will transfer the patient out of ICU to [facility] telemetry, patient states feeling better compared to when she arrived will continue to monitor and further recommendation to follow. (2) Elevated troponin: Code(s): R77.8 - Other specified abnormalities of plasma proteins Status: Acute Assessment and Plan: Elevated troponin is likely related to ischemic demand -did not show any ST-T change -discuss with Cardiology, also thinks it is due to ischemic demand -Echo 01/20/22 1. Complete two-dimensional, color flow and Doppler transthoracic echocardiogram is performed. 2. Left ventricular chamber dimension is normal. 3. Left ventricular systolic function is normal, estimated at 55-60%. 4. There is mildly increased left ventricular wall thickness. 5. The left ventricular diastolic function is indeterminate with information provided. 6. Global longitudinal strain is mildly elevated at -17 %. 7. There is trace tricuspid valve regurgitation. 8. Mild pulmonary hypertension, estimated pulmonary arterial systolic press
[2022-01-22] MEDS: ONDANSETRON INJ 4 MG/2 ML VIAL IV PUSH (14:59)
[2022-01-22] MEDS: SIMVASTATIN 20 MG TABLET 40 MG PO (21:08)
[2022-01-22] MEDS: LIDOCAINE 5% PATCH 1 PATCH TRANSDERM (21:09)
[2022-01-23] VITALS (12 sets, daily range): BP systolic 112–126; BP diastolic 56–62; PULSE 70–84; RESP 17–18; TEMP 36.2–36.8; O2SAT 95–97
[2022-01-23] MEDS: CENTRAL LINE FLUSH 10 ML IV PUSH ×3 (05:13→20:26)
[2022-01-23] MEDS: ESCITALOPRAM OXALATE 10 MG TABLET PO (08:25)
[2022-01-23] MEDS: PANTOPRAZOLE 40 MG TABLET PO (08:25)
[2022-01-23] MEDS: ASPIRIN 81 MG ENTERIC TABLET PO (08:25)
[2022-01-23] MEDS: ENOXAPARIN 40 MG/0.4 ML SYRINGE SUB-Q (08:25)
[2022-01-23 09:58] LABS: Hematocrit 32.2 % (37.0-47.0); Hemoglobin 10.3 g/dL (12.0-15.0); Mean Corpuscular Volume 87.5 fl (80-100); Mean Platelet Volume 11.9 fl (7.4-10.4); Platelet Count Result 119 k/mm3 (150-375); Red Blood Count 3.68 M/mm3 (4.2-5.4); Red Cell Distribution Width 15.4 % (11.5-14.5); White Blood Count 10.8 K/mm3 (4.5-10.0)
[2022-01-23 10:08] LABS: Alanine Aminotransferase 36 U/L (4-35); Albumin Level 3.2 g/dL (3.5-5.1); Alkaline Phosphatase 99 U/L (38-126); Anion Gap 5 mmol/L (8-16); Aspartate Amino Transferase 54 U/L (14-36); Blood Urea Nitrogen 7 mg/dL (7-17); Calcium 7.9 mg/dL (8.4-10.2); Carbon Dioxide 26 mmol/L (22-30); Chloride 104 mmol/L (98-107); Estimated CRCL calculation 79 ml/min; Estimated Glomerular Filt Rate > 60; Glucose 142 mg/dL (65-110); Magnesium 1.8 mg/dL (1.6-2.3); Potassium 3.3 mmol/L (3.4-5.0); Sodium 135 mmol/L (137-145)
--- NOTE | 2022-01-23 14:21 | PCOTNOTE ---
Patient sleeping soundly this pm and did not wake up to light verbal and tactile stim.
[2022-01-23] MEDS: SIMVASTATIN 20 MG TABLET 40 MG PO (20:24)
[2022-01-23] MEDS: ACETAMINOPHEN 325 MG TABLET 650 MG PO (22:42)
[2022-01-24] VITALS (8 sets, daily range): BP systolic 117–131; BP diastolic 69–88; PULSE 67–80; RESP 18–20; TEMP 36.4–36.8; O2SAT 92–99
[2022-01-24] MEDS: CENTRAL LINE FLUSH 10 ML IV PUSH ×4 (05:58→22:31)
[2022-01-24 06:40] LABS: Hematocrit 30.8 % (37.0-47.0); Hemoglobin 10.4 g/dL (12.0-15.0); Mean Corpuscular HGB Conc 33.8 g/dl (32-36); Mean Corpuscular Hemoglobin 28.3 pg (26-34); Mean Corpuscular Volume 83.9 fl (80-100); Mean Platelet Volume 12.2 fl (7.4-10.4); Platelet Count Result 118 k/mm3 (150-375); Red Blood Count 3.67 M/mm3 (4.2-5.4); Red Cell Distribution Width 15.3 % (11.5-14.5); White Blood Count 6.7 K/mm3 (4.5-10.0)
[2022-01-24 06:51] LABS: Alanine Aminotransferase 48 U/L (4-35); Alkaline Phosphatase 129 U/L (38-126); Anion Gap 3 mmol/L (8-16); Aspartate Amino Transferase 67 U/L (14-36); Bilirubin,Total 0.7 mg/dL (0.2-1.3); Blood Urea Nitrogen 6 mg/dL (7-17); Calcium 8.1 mg/dL (8.4-10.2); Carbon Dioxide 28 mmol/L (22-30); Chloride 106 mmol/L (98-107); Estimated CRCL calculation 79 ml/min; Estimated Glomerular Filt Rate > 60; Glucose 93 mg/dL (65-110); Potassium 3.2 mmol/L (3.4-5.0); Sodium 137 mmol/L (137-145)
[2022-01-24 06:57] LABS: Vancomycin Trough 16.7 ug/mL (10.0-20.0)
[2022-01-24] MEDS: ENOXAPARIN 40 MG/0.4 ML SYRINGE SUB-Q (08:31)
[2022-01-24] MEDS: PANTOPRAZOLE 40 MG TABLET PO (08:32)
[2022-01-24] MEDS: ASPIRIN 81 MG ENTERIC TABLET PO (08:32)
[2022-01-24] MEDS: ESCITALOPRAM OXALATE 10 MG TABLET PO (08:32)
--- NOTE | 2022-01-24 10:03 | PC.NURSE ---
Spoke with MD Coronado, pt responsing well to vancomycin and zosyn IV therapy r/t BC strep PNA 01/19/22, plan to continued IV therapy x7 days total possible discharge 01/27/22 if pt remains stable. Lindsay removed today per MD Coronado orders.
[2022-01-24] MEDS: ACETAMINOPHEN 325 MG TABLET 650 MG PO ×2 (10:53→22:31)
--- NOTE | 2022-01-24 13:47 | PC.NURSE ---
shower offered to pt, pt stated want to take later this evening, pt didn't want to change IJ dressing until shower taken. New gown, wash clothes and towels given to pt.
[2022-01-24] MEDS: POTASSIUM CHLORIDE 20 MEQ TABLET 40 MEQ PO (16:15)
[2022-01-24] MEDS: LIDOCAINE 5% PATCH 1 PATCH TRANSDERM (22:30)
[2022-01-24] MEDS: SIMVASTATIN 20 MG TABLET 40 MG PO (22:31)
[2022-01-25 05:19] LABS: Hematocrit 33.6 % (37.0-47.0); Hemoglobin 10.9 g/dL (12.0-15.0); Mean Corpuscular HGB Conc 32.4 g/dl (32-36); Mean Corpuscular Hemoglobin 27.9 pg (26-34); Mean Corpuscular Volume 86.2 fl (80-100); Platelet Count Result 154 k/mm3 (150-375); Red Cell Distribution Width 15.4 % (11.5-14.5)
[2022-01-25 05:28] LABS: Alanine Aminotransferase 45 U/L (4-35); Albumin Level 3.2 g/dL (3.5-5.1); Alkaline Phosphatase 137 U/L (38-126); Anion Gap 3 mmol/L (8-16); Aspartate Amino Transferase 52 U/L (14-36); Bilirubin,Total 0.5 mg/dL (0.2-1.3); Blood Urea Nitrogen 6 mg/dL (7-17); Calcium 8.3 mg/dL (8.4-10.2); Carbon Dioxide 28 mmol/L (22-30); Chloride 108 mmol/L (98-107); Estimated CRCL calculation 70 ml/min; Estimated Glomerular Filt Rate > 60; Glucose 96 mg/dL (65-110); Potassium 3.5 mmol/L (3.4-5.0); Sodium 139 mmol/L (137-145)
[2022-01-25 05:36] VITALS: BP 120/50; PULSE 77; RESP 17; TEMP 36.7; O2SAT 96
[2022-01-25] MEDS: CENTRAL LINE FLUSH 10 ML IV PUSH ×4 (06:15→22:11)
[2022-01-25 08:00] VITALS: PULSE 77; RESP 17; O2SAT 96
[2022-01-25] MEDS: ENOXAPARIN 40 MG/0.4 ML SYRINGE SUB-Q (08:15)
[2022-01-25] MEDS: ESCITALOPRAM OXALATE 10 MG TABLET PO (08:15)
[2022-01-25] MEDS: ASPIRIN 81 MG ENTERIC TABLET PO (08:15)
[2022-01-25] MEDS: PANTOPRAZOLE 40 MG TABLET PO (08:15)
--- NOTE | 2022-01-25 09:02 | PC.NURSE ---
Pt started on florstor bid for multiple episodes of diarrhea this shift.
--- NOTE | 2022-01-25 09:11 | PC.NURSE ---
Spoke to April infectious disease, reported pt sx. Pt is having diarrhea associated to abt therapy, started on Florastor bid.
[2022-01-25 13:49] VITALS: BP 133/57; PULSE 54; RESP 14; TEMP 36.1; O2SAT 98
--- NOTE | 2022-01-25 14:28 | PC.NURSE ---
On 01/25/22, the student, Shanita Johns, provided care and [facility]. I have reviewed the student's documentation and agree with the findings.
--- NOTE | 2022-01-25 15:24 | P.PNIM_ITS ---
Progress Note: A&P Assessment and Plan (1) Septic shock: Code(s): A41.9 - Sepsis, unspecified organism; R65.21 - Severe sepsis with septic shock Status: Acute Assessment and Plan: Septic shock likely related to hypovolemia secondary to nausea, vomiting, diarrhea related to possible gastroenteritis, 01/19/2022: Blood cultures growing strep pneumonia 2/2 bottles -patient received significant amount of IV fluids, was volume overloaded on 01/20, was given Lasix. Respiratory status improved, -patient is on Levophed, maintain MAP > 65 mmHg -leukocytosis and bandemia persists -continue cefepime and vancomycin (01/20/2022) -patient has a history of splenectomy -UA is negative 01/19: CT abdomen and pelvis: Liver, pancreas, gallbladder and adrenal glands are normal, multiple left upper quadrant splenules are noted. There is a 9 mm nonobstructing stone of the right kidney lower pole. Cysts of the kidneys measure up to 3.2 cm on the left. No pathologically enlarged abdominal or pelvic lymph nodes are identified. There is no free intraperitoneal gas or evidence of bowel obstruction. There is mild lumbar spondylosis. 01/19: Chest CTA, no pulmonary embolism, scattered subsegmental atelectasis, hepatic steatosis. 01/20: Abdominal ultrasound showed gallbladder sludge, gallbladder wall thickening may be seen with interstitial edema, chronic cholecystitis or chronic liver disease. 01/20: CT scan of the lumbar spine: Mild lumbar spondylosis. Mild right hydronephrosis without evident obstructing stone or mass at the transition point at the ureteropelvic junction. 01/21/2022 interval history: patient is 66-year-old female presented emergency department with complaint abdominal pain nausea or vomiting fever patient was in septic shock patient was vigorously hydrated however remain hypotensive central line was placed and patient was transferred to ICU and on pressors, patient is being treated with Cefepime and vancomycin, both blood culture bottles are growing Streptococcus pneumonia sensitive to vancomycin, currently patient is treated with Zosyn and vancomycin, patient states feeling better compared to when she arrived will continue to monitor and further recommendation to follow. 01/22/2022 interval history: patient is 66-year-old female with a past medical history splenectomy, presented emergency department with complaint abdominal pain nausea or vomiting fever patient was in septic shock patient was vigorously hydrated however remain hypotensive central line was placed and patient was transferred to ICU and on pressors, patient is being treated with Cefepime and vancomycin, both blood culture bottles are growing Streptococcus pneumonia sensitive to vancomycin, currently patient is treated with Zosyn and vancomycin, today patient is off pressor her blood pressure is stable, discussed with corporation secretary will transfer the patient out of ICU to [facility] telemetry, patient states feeling better compared to when she arrived will continue to monitor and further recommendation to follow. 01/23/2022 interval history: patient is 66-year-old female with a past medical history splenectomy, presented emergency department with complaint abdominal pain nausea or vomiting fever patient was in septic shock patient was vigorously hydrated however remain hypotensive central line was placed and patient was transferred to ICU and on pressors, patient was treated with Cefepime and vancomycin, started 01/20 both blood culture bottles are growing Streptococcus pneumonia sensitive to vancomycin, currently patient is treated with Zosyn and vancomycin patient will need 14 day of Vancomycin 12/13, on 01/22 patient was taken off
[2022-01-25] MEDS: SACCHAROMYCES BOULARDII 250 MG CAPSULE PO (16:16)
[2022-01-25] MEDS: SIMVASTATIN 20 MG TABLET 40 MG PO (19:47)
[2022-01-25 22:00] VITALS: BP 117/65; PULSE 84; RESP 18; TEMP 36.9; O2SAT 98
[2022-01-26] MEDS: ACETAMINOPHEN 325 MG TABLET 650 MG PO (05:30)
[2022-01-26] MEDS: CENTRAL LINE FLUSH 10 ML IV PUSH ×3 (05:30→21:30)
[2022-01-26 05:46] LABS: Hematocrit 32.7 % (37.0-47.0); Hemoglobin 10.9 g/dL (12.0-15.0); Mean Corpuscular HGB Conc 33.3 g/dl (32-36); Mean Corpuscular Volume 84.1 fl (80-100); Platelet Count Result 195 k/mm3 (150-375); Red Blood Count 3.89 M/mm3 (4.2-5.4); Red Cell Distribution Width 15.4 % (11.5-14.5); White Blood Count 10.4 K/mm3 (4.5-10.0)
[2022-01-26 05:55] LABS: Alanine Aminotransferase 36 U/L (4-35); Albumin Level 3.2 g/dL (3.5-5.1); Alkaline Phosphatase 120 U/L (38-126); Anion Gap 3 mmol/L (8-16); Aspartate Amino Transferase 46 U/L (14-36); Bilirubin,Total 0.4 mg/dL (0.2-1.3); Blood Urea Nitrogen 5 mg/dL (7-17); Calcium 8.2 mg/dL (8.4-10.2); Carbon Dioxide 28 mmol/L (22-30); Chloride 107 mmol/L (98-107); Estimated CRCL calculation 57 ml/min; Estimated Glomerular Filt Rate 56; Glucose 90 mg/dL (65-110); Potassium 3.4 mmol/L (3.4-5.0); Sodium 138 mmol/L (137-145)
[2022-01-26 06:00] VITALS: BP 149/72; PULSE 82; RESP 18; TEMP 36.4; O2SAT 95
[2022-01-26 08:41] VITALS: BP 125/52; PULSE 91; RESP 22; O2SAT 98
[2022-01-26] MEDS: SACCHAROMYCES BOULARDII 250 MG CAPSULE PO ×2 (09:07→16:41)
[2022-01-26] MEDS: ESCITALOPRAM OXALATE 10 MG TABLET PO (09:07)
[2022-01-26] MEDS: ASPIRIN 81 MG ENTERIC TABLET PO (09:07)
[2022-01-26] MEDS: PANTOPRAZOLE 40 MG TABLET PO (09:07)
[2022-01-26] MEDS: ENOXAPARIN 40 MG/0.4 ML SYRINGE SUB-Q (09:08)
[2022-01-26] MEDS: POTASSIUM CHLORIDE 20 MEQ TABLET 40 MEQ PO (09:08)
--- NOTE | 2022-01-26 12:39 | PM.IMPN ---
Progress Note: A&P Assessment and Plan (1) Septic shock: Code(s): A41.9 - Sepsis, unspecified organism; R65.21 - Severe sepsis with septic shock Status: Acute Assessment and Plan: Septic shock likely related to hypovolemia secondary to nausea, vomiting, diarrhea related to possible gastroenteritis, 01/19/2022: Blood cultures growing strep pneumonia 2/2 bottles -patient received significant amount of IV fluids, was volume overloaded on 01/20, was given Lasix. Respiratory status improved, -patient is on Levophed, maintain MAP > 65 mmHg -leukocytosis and bandemia persists -continue cefepime and vancomycin (01/20/2022) -patient has a history of splenectomy -UA is negative 01/19: CT abdomen and pelvis: Liver, pancreas, gallbladder and adrenal glands are normal, multiple left upper quadrant splenules are noted. There is a 9 mm nonobstructing stone of the right kidney lower pole. Cysts of the kidneys measure up to 3.2 cm on the left. No pathologically enlarged abdominal or pelvic lymph nodes are identified. There is no free intraperitoneal gas or evidence of bowel obstruction. There is mild lumbar spondylosis. 01/19: Chest CTA, no pulmonary embolism, scattered subsegmental atelectasis, hepatic steatosis. 01/20: Abdominal ultrasound showed gallbladder sludge, gallbladder wall thickening may be seen with interstitial edema, chronic cholecystitis or chronic liver disease. 01/20: CT scan of the lumbar spine: Mild lumbar spondylosis. Mild right hydronephrosis without evident obstructing stone or mass at the transition point at the ureteropelvic junction. 01/21/2022 interval history: patient is 66-year-old female presented emergency department with complaint abdominal pain nausea or vomiting fever patient was in septic shock patient was vigorously hydrated however remain hypotensive central line was placed and patient was transferred to ICU and on pressors, patient is being treated with Cefepime and vancomycin, both blood culture bottles are growing Streptococcus pneumonia sensitive to vancomycin, currently patient is treated with Zosyn and vancomycin, patient states feeling better compared to when she arrived will continue to monitor and further recommendation to follow. 01/22/2022 interval history: patient is 66-year-old female with a past medical history splenectomy, presented emergency department with complaint abdominal pain nausea or vomiting fever patient was in septic shock patient was vigorously hydrated however remain hypotensive central line was placed and patient was transferred to ICU and on pressors, patient is being treated with Cefepime and vancomycin, both blood culture bottles are growing Streptococcus pneumonia sensitive to vancomycin, currently patient is treated with Zosyn and vancomycin, today patient is off pressor her blood pressure is stable, discussed with conservation science teacher will transfer the patient out of ICU to [facility] telemetry, patient states feeling better compared to when she arrived will continue to monitor and further recommendation to follow. 01/23/2022 interval history: patient is 66-year-old female with a past medical history splenectomy, presented emergency department with complaint abdominal pain nausea or vomiting fever patient was in septic shock patient was vigorously hydrated however remain hypotensive central line was placed and patient was transferred to ICU and on pressors, patient was treated with Cefepime and vancomycin, started 01/20 both blood culture bottles are growing Streptococcus pneumonia sensitive to vancomycin, currently patient is treated with Zosyn and vancomycin patient will need 14 day of Vancomycin 12/13, on 01/22 patient was taken off pressor her blood pressure was stable and patient was transferred out of ICU to medical floor, today patient states feeling better compared to when she arrived, her is present in the room, will continue to monitor and further recommendat
[2022-01-26 14:00] VITALS: BP 95/78; PULSE 75; RESP 18; TEMP 37; O2SAT 97
--- NOTE | 2022-01-26 14:53 | PC.NURSE ---
On 01/26/22, the student, Fiordaliza Mcmahon, provided care and completed [facility] documentation on this patient. I have reviewed the student's documentation and agree with the findings.
[2022-01-26] MEDS: SIMVASTATIN 20 MG TABLET 40 MG PO (20:51)
[2022-01-26 21:22] VITALS: O2SAT 97
[2022-01-26 21:48] VITALS: BP 158/68; PULSE 86; RESP 18; TEMP 36.9; O2SAT 98
[2022-01-27 05:42] LABS: Hematocrit 30.1 % (37.0-47.0); Mean Corpuscular HGB Conc 33.2 g/dl (32-36); Mean Corpuscular Hemoglobin 27.9 pg (26-34); Mean Corpuscular Volume 83.8 fl (80-100); Mean Platelet Volume 11.2 fl (7.4-10.4); Platelet Count Result 255 k/mm3 (150-375); Red Blood Count 3.59 M/mm3 (4.2-5.4); Red Cell Distribution Width 15.4 % (11.5-14.5); White Blood Count 11.5 K/mm3 (4.5-10.0)
[2022-01-27 05:58] LABS: Alanine Aminotransferase 29 U/L (4-35); Albumin Level 2.9 g/dL (3.5-5.1); Alkaline Phosphatase 102 U/L (38-126); Anion Gap 4 mmol/L (8-16); Aspartate Amino Transferase 32 U/L (14-36); Bilirubin,Total 0.6 mg/dL (0.2-1.3); Blood Urea Nitrogen 4 mg/dL (7-17); Calcium 8.1 mg/dL (8.4-10.2); Carbon Dioxide 26 mmol/L (22-30); Chloride 107 mmol/L (98-107); Estimated CRCL calculation 57 ml/min; Estimated Glomerular Filt Rate 56; Glucose 89 mg/dL (65-110); Potassium 3.3 mmol/L (3.4-5.0); Sodium 137 mmol/L (137-145)
[2022-01-27 06:00] VITALS: BP 124/60; PULSE 75; RESP 18; TEMP 36.7; O2SAT 97
[2022-01-27] MEDS: SACCHAROMYCES BOULARDII 250 MG CAPSULE PO (08:01)
[2022-01-27] MEDS: ENOXAPARIN 40 MG/0.4 ML SYRINGE SUB-Q (08:01)
[2022-01-27] MEDS: ESCITALOPRAM OXALATE 10 MG TABLET PO (08:01)
[2022-01-27] MEDS: ASPIRIN 81 MG ENTERIC TABLET PO (08:01)
[2022-01-27] MEDS: PANTOPRAZOLE 40 MG TABLET PO (08:01)
[2022-01-27] MEDS: CENTRAL LINE FLUSH 10 ML IV PUSH (08:02)
[2022-01-27] MEDS: POTASSIUM CHLORIDE 20 MEQ TABLET 40 MEQ PO (09:03)
--- NOTE | 2022-01-27 09:32 | PCNWS ---
Weekly nutritional screen. Patient is tolerating current diet which is regular. Intake adequate. No weight loss reported, noted some gains. +BM. No nutritional needs at this time.
--- NOTE | 2022-01-27 10:06 | PM.DS ---
DS: Admitting Diagnosis Discharge Date 01/27/2022 Admitting Diagnosis Fever, nausea vomiting and diarrhea DS: Discharge Diagnosis Discharge Diagnosis (1) Septic shock: Code(s): A41.9 - Sepsis, unspecified organism; R65.21 - Severe sepsis with septic shock Status: Acute Assessment and Plan: Septic shock likely related to hypovolemia secondary to nausea, vomiting, diarrhea related to possible gastroenteritis, 01/19/2022: Blood cultures growing strep pneumonia 2/2 bottles -patient received significant amount of IV fluids, was volume overloaded on 01/20, was given Lasix. Respiratory status improved, -patient is on Levophed, maintain MAP > 65 mmHg -leukocytosis and bandemia persists -continue cefepime and vancomycin (01/20/2022) -patient has a history of splenectomy -UA is negative 01/19: CT abdomen and pelvis: Liver, pancreas, gallbladder and adrenal glands are normal, multiple left upper quadrant splenules are noted. There is a 9 mm nonobstructing stone of the right kidney lower pole. Cysts of the kidneys measure up to 3.2 cm on the left. No pathologically enlarged abdominal or pelvic lymph nodes are identified. There is no free intraperitoneal gas or evidence of bowel obstruction. There is mild lumbar spondylosis. 01/19: Chest CTA, no pulmonary embolism, scattered subsegmental atelectasis, hepatic steatosis. 01/20: Abdominal ultrasound showed gallbladder sludge, gallbladder wall thickening may be seen with interstitial edema, chronic cholecystitis or chronic liver disease. 01/20: CT scan of the lumbar spine: Mild lumbar spondylosis. Mild right hydronephrosis without evident obstructing stone or mass at the transition point at the ureteropelvic junction. 01/21/2022 interval history: patient is 66-year-old female presented emergency department with complaint abdominal pain nausea or vomiting fever patient was in septic shock patient was vigorously hydrated however remain hypotensive central line was placed and patient was transferred to ICU and on pressors, patient is being treated with Cefepime and vancomycin, both blood culture bottles are growing Streptococcus pneumonia sensitive to vancomycin, currently patient is treated with Zosyn and vancomycin, patient states feeling better compared to when she arrived will continue to monitor and further recommendation to follow. 01/22/2022 interval history: patient is 66-year-old female with a past medical history splenectomy, presented emergency department with complaint abdominal pain nausea or vomiting fever patient was in septic shock patient was vigorously hydrated however remain hypotensive central line was placed and patient was transferred to ICU and on pressors, patient is being treated with Cefepime and vancomycin, both blood culture bottles are growing Streptococcus pneumonia sensitive to vancomycin, currently patient is treated with Zosyn and vancomycin, today patient is off pressor her blood pressure is stable, discussed with room service waiter/waitress will transfer the patient out of ICU to [facility] telemetry, patient states feeling better compared to when she arrived will continue to monitor and further recommendation to follow. 01/23/2022 interval history: patient is 66-year-old female with a past medical history splenectomy, presented emergency department with complaint abdominal pain nausea or vomiting fever patient was in septic shock patient was vigorously hydrated however remain hypotensive central line was placed and patient was transferred to ICU and on pressors, patient was treated with Cefepime and vancomycin, started 01/20 both blood culture bottles are growing Streptococcus pneumonia sensitive to vancomycin, currently patient is treated with Zosyn and vancomycin patient will need 14 day of Vancomycin 12/13, on 01/22 patient was taken off pressor her blood pressure was stable and patient was transferred out of ICU to medical floor, today patient states feeling bet
== END 2022-01-27 12:03 | disposition home or self-care (01) | DRG 871 ==
LOC: ANHED 21:41 → ANHICU 01-20 12:53 → ANH3MEDSUR 01-23 02:11 → ANHICU 01-28 10:59
PROVIDERS: Internal Medicine; Admitting Provider Internal Medicine; Emergency Provider Emergency Medicine; Visit Provider Family Medicine
DX: A41.9 Sepsis, unspecified organism (principal); R65.21 Severe sepsis with septic shock; I24.8 Other forms of acute ischemic heart disease; Z20.822 Contact with and (suspected) exposure to COVID-19; E87.6 Hypokalemia; E83.42 Hypomagnesemia; I27.20 Pulmonary hypertension, unspecified; I10 Essential (primary) hypertension; D72.825 Bandemia; Z87.891 Personal history of nicotine dependence; Z82.49 Family history of ischemic heart disease and other diseases of the circulatory system; E78.5 Hyperlipidemia, unspecified; Z90.81 Acquired absence of spleen; K52.9 Noninfective gastroenteritis and colitis, unspecified; Z87.440 Personal history of urinary (tract) infections; B95.3 Streptococcus pneumoniae as the cause of diseases classified elsewhere; Z79.899 Other long term (current) drug therapy; Z79.82 Long term (current) use of aspirin; N28.1 Cyst of kidney, acquired; E86.1 Hypovolemia
CPT/HCPCS: 36415; 36556; 71045; 71046; 71275; 72131; 74177; 76705; 80048; 80053; 80202; 81001; 82565; 82948; 83605; 83690; 83735; 83880; 84132; 84145; 84484; 85025; 85027; 85055; 85610; 85730; 86140; 87040; 87077; 87186; 87502; 93005; 93306; 94640; 96361; 96365; 96375; 97110; 97116; 97161; 97165; 97535; 99285; A9270; C1751; C9803; J0131; J0692; J1650; J1940; J2270; J2405; J2543; J3370; J3475; J3480; J7030; J7040; J7120; Q9967; U0003; U0005